=== PATIENT | male | born 1990 | race Two or more races ===

== ENCOUNTER 2017-05-01 19:24 | Emergency (ER) | payer SELFPAY ==
[2017-05-01] MEDS ORDERED: IV NORMAL SALINE 1,000ML 1,000 ML IV SCH (20:00)
[2017-05-01] MEDS ORDERED: 0.9 % SODIUM CHLORIDE 10 ML DISP.SYRIN. IV PRN (20:00)
[2017-05-01] MEDS ORDERED: NALOXONE 0.4 MG/ML VIAL. IV ONE (20:00)
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
[2017-05-01 20:24] LABS: BASO # 0.1 x10^3/uL (0.0-0.2); BASO % 1 % (0-3); EOS # 0.2 x10^3/uL (0.0-0.7); EOS % 2 % (0-3); HEMATOCRIT 39.8 % (39.0-53.0); HEMOGLOBIN 13.7 g/dL (13.0-17.5); LYMPH # 3.9 x10^3/uL (1.0-4.8); LYMPH % 48 % (24-48); MEAN CORPUSCULAR HEMOGLOBIN 30 pg (25-35); MEAN CORPUSCULAR HGB CONC 35 g/dL (31-37); MEAN CORPUSCULAR VOLUME 88 fL (79-100); MONO # 0.5 x10^3/uL (0.0-1.1); MONO % 6 % (0-9); NEUT # 3.5 x10^3uL (1.8-7.7); NEUT % 43 % (31-73); PLATELET COUNT 352 x10^3/uL (140-400); RED BLOOD COUNT 4.55 x10^6/uL (4.30-5.70); RED CELL DISTRIBUTION WIDTH 12.9 % (11.5-14.5); WHITE BLOOD COUNT 8.1 x10^3/uL (4.0-11.0)
[2017-05-01 20:42] LABS: ALBUMIN 3.8 g/dL (3.4-5.0); ALBUMIN/GLOBULIN RATIO 1.1 (1.0-1.7); CALCIUM 8.7 mg/dL (8.5-10.1); CREATININE 1.1 mg/dL (0.7-1.3); GFR 80.9; POTASSIUM 3.4 mmol/L (3.5-5.1); TOTAL BILIRUBIN 0.2 mg/dL (0.2-1.0); TOTAL PROTEIN 7.4 g/dL (6.4-8.2)
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
[2017-05-01 22:00] VITALS: BP 142/82
[2017-05-01] MEDS ORDERED: HYDROcodone/APAP 5/325MG 1 TAB TABLET PO ONE (22:00)
[2017-05-01] MEDS ORDERED: DIAZ5TAB PO (22:07)
[2017-05-01] MEDS ORDERED: NAPR500T PO (22:07)
[2017-05-01] MEDS ORDERED: HYDR-2758 PO (22:07)
[2017-05-01 22:54] LABS: BARBITURATES NEG (NEG); BENZODIAZEPINES POS (NEG); CANNABINOIDS NEG (NEG); COCAINE NEG (NEG); METHADONE NEG (NEG); OPIATES POS (NEG); PHENCYCLIDINE NEG (NEG)
[2017-05-01 22:55] LABS: AMPHETAMINE/METHAMPHETAMINE NEG (NEG)
[2017-05-01 23:02] LABS: BILIRUBIN,URINE NEG (NEG); CLARITY,URINE CLEAR; COLOR,URINE YELLOW; GLUCOSE,URINE NEG (NEG)
[2017-05-01 23:03] LABS: BACTERIA,URINE 0 /HPF (0-FEW); NITRITE,URINE NEG (NEG); RBC,URINE 0 /HPF (0-2); SQUAMOUS EPITHELIAL CELL,UR FEW /LPF; UROBILINOGEN,URINE 0.2 mg/dL (0.2 mg/dL); WBC,URINE OCC /HPF (0-4)
== END 2017-05-01 22:34 | disposition home or self-care (01) ==
LOC: ER 19:24
DX: S06.0X0A Concussion without loss of consciousness, initial encounter (principal); S39.92XA Unspecified injury of lower back, initial encounter; V49.49XA Driver injured in collision with other motor vehicles in traffic accident, initial encounter; W22.10XA Striking against or struck by unspecified automobile airbag, initial encounter; Y93.89 Activity, other specified; Y99.8 Other external cause status; Y92.410 Unspecified street and highway as the place of occurrence of the external cause
CPT/HCPCS: 36415; 70450; 72125; 80053; 80307; 81001; 85025; 85610; 85730; 96361; 96374; 99285; G0480; J2310; G0479; J7030

== ENCOUNTER 2020-08-27 13:34 | Emergency (ER) | payer SELFPAY ==
[~2020-08-27] VITALS: Ht 172.7 cm; Wt 133.0 kg
[2020-08-27 13:34] VITALS: BP 167/107
[~2020-08-27 13:34] MED LIST: DIAZ5TAB PO; HYDR-2155 PO; NAPR-683 PO
--- NOTE | 2020-08-27 13:47 | PHYS DOC ---
Past History Past Medical History: No Pertinent History Past Surgical History: No Surgical History Alcohol Use: None Drug Use: None General Adult HPI: HPI: 29-year-old male past medical history of obesity and hypertension, noncompliant with medications, presents the ED with complaints of left lower extremity swelling that has been present for the past week located in his left calf. States around 8 AM he had gradual onset sternal, nonradiating sharp chest pain that is been progressively getting worse. Reports no associated hemoptysis, difficulties breathing/dyspnea, nausea, vomiting, sore throat, cough, lightheadedness, dizziness, near-syncope, syncope, back pain or neurologic deficits. Smokes tobacco, denies any cocaine or methamphetamine abuse. No known history of Covid. Is not employed. Has no routine primary care physician. Father with history of CAD. No family history of cardiac arrhythmias, sudden under the age of 50, hypercoagulable state, AAD/AAA, ICH or connective tissue disorder including Marfan's or Nicolle-Danlos. Denies any recent surgery, trauma, hospitalizations, long car rides or long airplane trips. No prior history of DVT or PE. Reports this ED started him on a blood pressure medicine that was also the water pill-thinks it was HCTZ. Review of Systems: Review of Systems: Constitutional: Denies fever or chills Eyes: Denies change in visual acuity HENT: Denies nasal congestion or sore throat Respiratory: Denies cough or shortness of breath Cardiovascular: Denies syncope or hemoptysis GI: Denies abdominal pain, nausea, vomiting, bloody stools or diarrhea : Denies dysuria or hematuria Musculoskeletal: Denies back pain or joint deformity Integument: Denies rash or diaphoresis Neurologic: Denies headache, focal weakness or sensory changes Endocrine: Denies polyuria or polydipsia Lymphatic: Denies swollen glands Psychiatric: Denies depression or anxiety Allergies: Allergies: Allergies Coded Allergies Type Severity Reaction Last Updated Verified No Known Drug Allergies 05/01/17 No Physical Exam: PE: Constitutional: Well developed, well nourished, no acute distress, non-toxic appearance, hypertensive, obese habitus HENT: Normocephalic, atraumatic, Eyes: EOMI, conjunctiva normal, no discharge. Neck: Normal range of motion, supple, Cardiovascular: S1/2 present, regular rhythm Lungs & Thorax: Speaking in full sentences, bilateral equal chest rise, no tachypnea or increased work of breathing Abdomen: soft, no tenderness, Skin: Warm, dry, no erythema, no rash. [] Back: No tenderness, no CVA tenderness. [] Extremities: No tenderness, no cyanosis, left calf appears slightly larger than right Neurologic: Alert and oriented X 3, normal motor function, normal sensory fu nction, no focal deficits noted. [] Psychologic: Affect normal, judgement normal, mood normal. [] EKG: EKG: Sinus rhythm 83 bpm, no axis deviation, normal intervals, no T wave inversions, no ST elevations or ST depressions Radiology/Procedures: Radiology/Procedures: IMAGING REPORT Signed PATIENT: HIWOT OWENUNT: [id number] : 1990 LOCATION: ER AGE: 29 SEX: M EXAM STATUS: REG ER ORD. PHYSICIAN: ABEBA COOK DO REASON: CHEST PAIN PROCEDURE: PORTABLE CHEST 1V Study: XR CHEST 1V Indication: Chest pain. Comparison: None. Findings: The cardiomediastinal silhouette is within normal limits for size given AP technique and low lung volumes. No confluent airspace infiltrate, layering effusion or pneumothorax. Impression: No acute radiographic abnormality of the chest. Electronically signed by: CARMELO MORRIS MD (08/27/2020 2:04 PM) [id number] DICTATED AND SIGNED BY: CARMELO MORRIS MD DATE: 08/27/20 1403 CC: ABEBA COOK DO; SHANELLE GEORGES MD ~MTH0 0 IMAGING REPORT Signed PATIENT: HIWOT OWEN TACCOUNT: [id number] : 1990 LOCATION: ER AGE: 29 SEX: M EXAM STATUS: REG ER ORD. PHYSICIAN: ABEBA COOK DO REASON: lle swelling PROCEDURE: VENOUS LOWER EXTREMITY LEFT Examination: LEFT LOWER EXTREMITY - UNILATERAL VENOUS DOPPLER Technique: Ultrasound evaluation of the left lower extremity was performed from the groin to the upper calf with rios scale, spectral and color doppler evaluation. Indication: Leg swelling Comparison: None Findings: There is normal venous flow and compressibility of left common femoral vein, femoral vein, popliteal vein, and visualized proximal calf veins. Impression: No evidence for deep vein thrombosis of left lower extremity from the level of the calf veins to the groins. Electronically signed by: Darius Castellanos MD (08/27/2020 3:18 PM) [facility] DICTATED AND SIGNED BY: DARIUS CASTELLANOS MD DATE: 08/27/20 1518 CC: ABEBA COOK DO; SHANELLE GEORGES MD ~MTH0 0 IMAGING REPORT Signed PATIENT: HIWOT OWEN TACCOUNT: [id number] : 1990 LOCATION: ER AGE: 29 SEX: M EXAM STATUS: REG ER ORD. PHYSICIAN: ABEBA COOK DO REASON: sob, cp, leg swelling, r/o pe PROCEDURE: CT ANGIOGRAPHY CHEST EXAMINATION: CTA CHEST CLINICAL HISTORY: Chest pain, shortness of breath, and lower extremity edema concerning for PE Technique: Spiral CT acquisition of the chest from the thoracic inlet to the upper abdomen following IV contrast with coronal and sagittal reformatted images also provided for review. 3D maximum intensity projection images also performed. CT Dose Reduction Employed: One or more of the following individualized dose reduction techniques were utilized for this examination: 1. Automated exposure control 2. Adjustment of the mA and/or kV according to patient size 3. Use of iterative reconstruction technique. Comparison: Chest radiograph same day FINDINGS: Suboptimal opacification of the pulmonary arterial system: Prominent respiratory motion artifact limits evaluation. Pulmonary Vasculature: No evidence of main, lobar, or definite segmental pulmonary arterial thrombus. Mildly dilated main pulmonary artery measuring up to 3.5 cm in diameter. Lung Parenchyma, Pleura, and Airways: No focal consolidation. No suspicious pulmonary nodule. No pleural effusion. Central airways patent. Lower Neck, Lymph Nodes, and Mediastinum: Visualized thyroid gland within normal limits. No mediastinal, hilar, or axillary lymphadenopathy. Heart, Pericardium, and Thoracic Vessels: Cardiac chambers normal in size. No pericardial effusion. Thoracic aorta within normal limits. Bones and Soft Tissues: No evidence of acute osseous abnormality. Upper Abdomen: Partially visualized upper abdomen unremarkable. IMPRESSION: No evidence of pulmonary embolism or acute cardiopulmonary abnormality on somewhat limited evaluation as described.. Electronically signed by: Travis Up DO (08/27/2020 4:06 PM) [id number] DICTATED AND SIGNED BY: TRAVIS UP DO DATE: 08/27/20 1550 CC: ABEBA COOK DO; SHANELLE GEORGES MD ~MTH0 0 Heart Score: C/O Chest Pain: Yes HEART Score for Chest Pain: HEART Score for Chest Pain Response (Comments) Value History Slighlty/Non-Suspicious 0 ECG Normal 0 Age < 45 0 Risk Factors >3 Risk Factors or Hx CAD 2 Troponin < Normal Limit 0 Total 2 Risk Factors: Risk Factors: DM, Current or recent (<one month) smoker, HTN, HLP, family history of CAD, obesity. Risk Scores: Score 0 - 3: 2.5% MACE over next 6 weeks - Discharge Home Score 4 - 6: 20.3% MACE over next 6 weeks - Admit for Clinical Observation Score 7 - 10: 72.7% MACE over next 6 weeks - Early Invasive Strategies Course & Med Decision Making: Course & Med Decision Making Pertinent Labs and Imaging studies reviewed. (See chart for details) Concern for left lower extremity swelling over the course of the past week with sternal, gradual onset worsening chest pain that has been present for more than 6 hours. EKG with no ischemia. Troponin negative. D-dimer elevated. Lower extremity duplex with no left DVT. Chest xray w/no filtrates. CTA of the chest is pending to evaluate for pulmonary embolus. 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 Pt is aware he has not been medically cleared. Pt is requested some for his leg pain-will rx muscle relaxers in addition [id number] analgesia, was educated do not drink or drive with these medications. I called pt back on and informed patient of unremarkable CT of the chest results, that his dc instructions he received hasn't changed. I answered all his questions and pt was appreciative of his care. The patient has decided to leave our facility against medical advice. I have assessed patient's ability to make informed decision and feel the patient has the capacity to comprehend information regarding the current medical condition and appreciates the impact of the disease or condition and the consequences of various options for treatment, including foregoing treatment. The patient possesses the ability to evaluate all treatment options, comparing the risks and benefits of each option, communicate his or her choice in a consistent manner over time, and is able to make rational choices. I explained to the patient further testing, treatment, and evaluation I would like to perform in the emergency department visit as well as any possible alternatives that can be accomplished in a timely manner. I have outlined the possible risks of foregoing any or all of these interventions and the patient understands and acknowledges that the decision to leave may result in undesirable consequences such as , permanent disability, and/or loss of current lifestyle. Even though leaving AMA is not ideal, I have instructed the patient to follow any discharge instructions given, take any medications prescribed, and resume care as soon as possible with another provider. This conversation was witnessed by another member of the emergency department staff and we clearly communicated the patient is welcome to return anytime to continue care at our facility. Will discharge home with strict ED return precautions were given for worsening chest or back pain, neurologic deficits, difficulties breathing, or increased work of breathing. Encouraged urgent outpatient follow-up with PMD for blood pressure recheck, may need repeat DVT ultrasound, and outpatient nonemergent cardiology evaluation. Life-threatening processes were considered but are low suspicion at this time, given history, physical exam and ED workup. Pt was educated on all prescription medications and adverse effects. All patient's questions were answered and pt was stable at time of discharge. Life/limb-threatening differential includes but is not limited to, acute myocardial infarction, aortic dissection, congestive heart failure, esophageal injury including rupture, surgical abdomen, arrhythmia, cardiomyopathy, myocarditis, pericarditis, peptic ulcer disease, pneumomediastinum, pneumonia, pneumothorax, pulmonary embolus, unstable angina, rib fracture, contusion, pericardial tamponade or effusion, traumatic injury including mediastinal hemorrhage or hematoma, or pulmonary contusion. I spoken with the patient and her caregivers. I explained the patient's condition, diagnoses and treatment plan based on the information available to me at this time. I have answered the patient and her caregiver's questions and addressed any concerns. The patient and her caregivers have a good understandi ng of patient's diagnosis, condition and treatment plan as can be expected at this point. Vital signs have been stable. Patient's condition is stable and appropriate for discharge from the emergency department. Patient will pursue further outpatient evaluation with primary care physician or other designated or consulting physician as outlined in the discharge instructions. The patient and/or caregivers are agreeable to this plan of care and follow-up instructions have been explained in detail. The patient and/or caregivers have received these instructions in written form and have expressed an understanding of the discharge instructions. The patient and/or caregivers are aware that any significant change of condition or worsening of symptoms should prompt immediate return to this or the closest emergency department or call to 911. Soledad Disclaimer: Soledad Disclaimer: This electronic medical record was generated, in whole or in part, using a voice recognition dictation system. Departure Departure: Impression: Primary Impression: Elevated liver function tests Additional Impressions: Swelling of left lower extremity Chest pain at rest Uncontrolled hypertension Disposition: 07 AMA/ELOPED/LWBS Condition: STABLE Referrals: SHANELLE GEORGES MD (PCP) For reevaluation in 1 week for blood pressure check. May benefit from repeat ultrasound if leg swelling persists in the next 2 weeks. Patient Instructions: Chest Pain (Nonspecific), Hypertension, Peripheral Edema Additional Instructions: FOLLOW UP WITH CARDIOLOGY: For nonemergent chest pain evaluation [facility] [id number] [facility] [address] [address] EMERGENCY DEPARTMENT GENERAL DISCHARGE INSTRUCTIONS Thank you for coming to [facility] (ED) today and trusting us with you care. We trust that you had a positivie experience in our Emergency Department. If you wish to speak to the department management, you may call the director at [phone]. YOUR FOLLOW UP INSTRUCTIONS ARE FOLLOWS: 1. Do you have a private Doctor? If you do not have a private doctor, please ask for a resource list of physicians or clinics that may be able to assist you with follow up care. 2. The Emergency Physician has interpreted your x-rays. The X-Ray specialist will also review them. If there is a change in the findings, you will be notified in 48 hours when at all possible. 3. A lab test or culture has been done, your results will be reviewed and you will be notified if you need a change in treatment. ADDITIONAL INSTRUCTIONS AND INFORMATION: 1. Your care today has been supervised by a physician who is specially trained in emergency care. Many problems require more than one evaluation for a complete diagnosis and treatment. We recommend that you schedule your follow up appointment as recommended to ensure complete treatment of you illness or injury. If you are unable to obtain follow up care and continue to have a problem, or if your condition worsens, we recommend that you return to the ED. 2. We are not able to safely determine your condition over the phone nor are we able to give sound medical advice over the phone. For these safety reasons, if you call for medical advice we will ask you to come to the ED for further evaluation. 3. If you have any questions regarding these discharge instructions please call the ED at [phone]. SAFETY INFORMATION: In the interest of safety, wellness, and injury prevention; we encourage you to wear your sealbelt, if you smoke; quite smoking, and we encourage family to use a protective helmet for bicycling and other sporting events that present an increased risk for head injury. IF YOUR SYMPTOMS WORSEN OR NEW SYMPTOMS DEVELOP, OR YOU HAVE CONCERNS ABOUT YOUR CONDITION; OR IF YOUR CONDITION WORSENS WHILE YOU ARE WAITING FOR YOUR FOLLOW UP APPOINTMENT; EITHER CONTACT YOUR PRIMARY CARE DOCTOR, THE PHYSICIAN WHOSE NAME AND NUMBER YOU WERE GIVEN, OR RETURN TO THE ED IMMEDIATELY. Scripts Cyclobenzaprine Hcl (CYCLOBENZAPRINE HCL) 5 Mg Tablet 1 TAB PO TID for pain, #20 TAB Prov: ABEBA COOK DO 08/27/20 ABEBA COOK DO Aug 27, 2020 13:47
--- NOTE | 2020-08-27 13:55 | EKG ---
[facility] ED [facility] [address] [place] [id number] Test Date: 2020-08-27 Test Time: 13:40:29 Pat Name: HIWOT OWEN Department: Room: Gender: M Bottle Gauger: : 1990 Requested By: ABEBA COOK Order Number: [id number] Reading MD: Measurements Intervals [place] Rate: 83 P: 38 FL: 192 QRS: 41 QRSD: 86 T: 22 QT: 354 QTc: 416 Interpretive Statements SINUS RHYTHM NO SPECIFIC ECG ABNORMALITIES RI6.02 No previous ECG available for comparison
--- NOTE | 2020-08-27 14:06 | RAD ---
Study: XR CHEST 1V Indication: Chest pain. Comparison: None. Findings: The cardiomediastinal silhouette is within normal limits for size given AP technique and low lung vol umes. No confluent airspace infiltrate, layering effusion or pneumothorax. Impression: No acute radiographic abnormality of the chest. Electronically signed by: CARMELO MORRIS MD (08/27/2020 2:04 PM) [id number]
[2020-08-27 14:10] LABS: BASO # 0.1 x10^3/uL (0.0-0.2); BASO % 1 % (0-3); EOS # 0.3 x10^3/uL (0.0-0.7); EOS % 3 % (0-3); HEMATOCRIT 39.4 % (39.0-53.0); HEMOGLOBIN 13.3 g/dL (13.0-17.5); LYMPH # 2.7 x10^3/uL (1.0-4.8); LYMPH % 25 % (24-48); MEAN CORPUSCULAR HEMOGLOBIN 30 pg (25-35); MEAN CORPUSCULAR HGB CONC 34 g/dL (31-37); MEAN CORPUSCULAR VOLUME 89 fL (79-100); MONO # 0.7 x10^3/uL (0.0-1.1); MONO % 7 % (0-9); NEUT # 6.9 x10^3uL (1.8-7.7); NEUT % 64 % (31-73); PLATELET COUNT 349 x10^3/uL (140-400); RED BLOOD COUNT 4.45 x10^6/uL (4.30-5.70); RED CELL DISTRIBUTION WIDTH 12.9 % (11.5-14.5); WHITE BLOOD COUNT 10.8 x10^3/uL (4.0-11.0)
[2020-08-27 14:17] LABS: CALCIUM 8.7 mg/dL (8.5-10.1); CREATININE 0.8 mg/dL (0.7-1.3); GFR 114.3; POTASSIUM 3.4 mmol/L (3.5-5.1)
[2020-08-27 14:24] LABS: ALBUMIN 3.4 g/dL (3.4-5.0); ALBUMIN/GLOBULIN RATIO 0.9 (1.0-1.7); MAGNESIUM 1.9 mg/dL (1.8-2.4); TOTAL BILIRUBIN 0.2 mg/dL (0.2-1.0); TOTAL PROTEIN 7.2 g/dL (6.4-8.2)
[2020-08-27] MEDS ORDERED: IOHEXOL 350 MG/ML 100 ML VIAL. IV ONE (15:15)
[2020-08-27] MEDS ORDERED: HYDROmorphone PF 1 MG/ML DISP.SYRIN IVP ONE (15:15)
--- NOTE | 2020-08-27 15:20 | RAD ---
Examination: LEFT LOWER EXTREMITY - UNILATERAL VENOUS DOPPLER Technique: Ultrasound evaluation of the left lower extremity was performed from the groin to the uppe r calf with rios scale, spectral and color doppler evaluation. Indication: Leg swelling Comparison: None Findings: There is normal venous flow and compressibility of left common femoral vein, femoral vein, popliteal vein, and visualized proximal calf veins. Impression: No evidence for deep vein thrombosis of left lower extremity from the level of the calf v eins to the groins. Electronically signed by: Darius Mata MD (08/27/2020 3:18 PM) MAVERICK
[2020-08-27] MEDS ORDERED: KETOROLAC 15 MG/ML VIAL. IVP ONE (15:45)
[2020-08-27] MEDS ORDERED: CYCL5TAB PO (15:51)
--- NOTE | 2020-08-27 16:09 | RAD ---
EXAMINATION: CTA CHEST CLINICAL HISTORY: Chest pain, shortness of breath, and lower extremity edema concerning for PE Technique: Spiral CT acquisition of the chest from the thoracic inlet to the upper abdomen following IV contrast with coronal and sagittal reformatted images also provided for review. 3D maximum intensi ty projection images also performed. CT Dose Reduction Employed: One or more of the following individualized dose reduction techniques wer e utilized for this examination: 1. Automated exposure control 2. Adjustment of the mA and/or kV ac cording to patient size 3. Use of iterative reconstruction technique. Comparison: Chest radiograph same day FINDINGS: Suboptimal opacification of the pulmonary arterial system: Prominent respiratory motion artifact limi ts evaluation. Pulmonary Vasculature: No evidence of main, lobar, or definite segmental pulmonary arterial thrombus. Mildly dilated main pulmonary artery measuring up to 3.5 cm in diameter. Lung Parenchyma, Pleura, and Airways: No focal consolidation. No suspicious pulmonary nodule. No pleu ral effusion. Central airways patent. Lower Neck, Lymph Nodes, and Mediastinum: Visualized thyroid gland within normal limits. No mediastin al, hilar, or axillary lymphadenopathy. Heart, Pericardium, and Thoracic Vessels: Cardiac chambers normal in size. No pericardial effusion. T horacic aorta within normal limits. Bones and Soft Tissues: No evidence of acute osseous abnormality. Upper Abdomen: Partially visualized upper abdomen unremarkable. IMPRESSION: No evidence of pulmonary embolism or acute cardiopulmonary abnormality on somewhat limited evaluation as described.. Electronically signed by: Travis Gamble DO (08/27/2020 4:06 PM) [id number]
== END 2020-08-27 15:45 | disposition left against medical advice (07) ==
LOC: ER 13:34
DX: R79.89 Other specified abnormal findings of blood chemistry (principal); R22.42 Localized swelling, mass and lump, left lower limb; R07.89 Other chest pain; I10 Essential (primary) hypertension; E66.9 Obesity, unspecified; Z68.41 Body mass index [BMI] 40.0-44.9, adult; Z91.14 Patient's other noncompliance with medication regimen
CPT/HCPCS: 36415; 71045; 71275; 80053; 83690; 83735; 84484; 85025; 85379; 93005; 93971; 96374; 99285; J1885; Q9967

== ENCOUNTER 2020-09-05 20:27 | Emergency (ER) | payer SELFPAY ==
[~2020-09-05] VITALS: Ht 172.7 cm; Wt 133.0 kg
[2020-09-05 20:27] VITALS: BP 176/116
[~2020-09-05 20:27] MED LIST changes: +CYCL5TAB PO
[2020-09-05] MEDS ORDERED: ACETAMINOPHEN 500 MG TABLET PO ONE (20:45)
--- NOTE | 2020-09-05 20:45 | PHYS DOC ---
Past History Past Medical History: No Pertinent History Past Surgical History: No Surgical History Alcohol Use: None Drug Use: None Adult General Chief Complaint Chief Complaint: LOWER EXTREMITY SWELLING HPI HPI Patient is a 30-year-old male who presents with left lower extremity swelling. States it started approximately 2 weeks ago and he came into the emergency department for this. States he was evaluated for DVT with ultrasound and it came up negative. States he was told by the ED staff and his doctor that if it did not get better to come back to the emergency department for repeat ultrasound. Patient states that his left lower extremity has significant swelling that has not gone down since his last visit. Denies any recent travel, illnesses, surgeries, traumas, fevers, chest pain, shortness of breath, abdominal pain, nausea, vomiting. States he is otherwise eating and drinking normally. States he is making urine and stool normally for him. Denies any alcohol or drug use. Review of Systems Review of Systems Review of systems otherwise unremarkable except noted in HPI Allergies Allergies Allergies Coded Allergies Type Severity Reaction Last Updated Verified No Known Drug Allergies 05/01/17 No Physical Exam Physical Exam Constitutional: Well developed, well nourished, no acute distress, non-toxic appearance. [] HENT: Normocephalic, atraumatic, bilateral external ears normal, oropharynx moist, no oral exudates, nose normal. [] Eyes: conjunctiva normal, no discharge. [] Neck: Normal range of motion, no tenderness, supple, no stridor. [] Cardiovascular:Heart rate regular rhythm, no murmur [] Lungs & Thorax: Bilateral breath sounds clear to auscultation [] Abdomen: soft, no tenderness, Skin: Warm, dry, no erythema, no rash. [] Back: No tenderness, no CVA tenderness. [] Extremities: Left lower extremity swelling, and tenderness with no obvious deformities or bruising Neurologic: Alert and oriented X 3, normal motor function, normal sensory function, no focal deficits noted. [] Psychologic: Affect normal, judgement normal, mood normal. [] EKG EKG [] Radiology/Procedures Radiology/Procedures [] Heart Score C/O Chest Pain: No Risk Factors: Risk Factors: DM, Current or recent (<one month) smoker, HTN, HLP, family history of CAD, obesity. Risk Scores: Risk Factors: DM, Current or recent (<one month) smoker, HTN, HLP, family history of CAD, obesity. Course & Med Decision Making Course & Med Decision Making Patient is a 30-year-old male presents with left lower extremity swelling Laboratory gnosis not concerning. Physical exam noted above. Patient stated that he needed to leave the emergency department in 1 hour and did not have time to wait for laboratory analysis, or ultrasound and signed out AMA. [] Dragon Disclaimer Dragon Disclaimer This electronic medical record was generated, in whole or in part, using a voice recognition dictation system. Departure Departure: Impression: Primary Impression: Leg swelling Disposition: 07 AMA/ELOPED/LWBS Condition: STABLE Referrals: SHANELLE GEORGES MD (PCP) JONAH GARY MD Sep 05, 2020 20:45
== END 2020-09-05 20:50 | disposition left against medical advice (07) ==
LOC: ER 20:27
DX: R22.42 Localized swelling, mass and lump, left lower limb (principal)
CPT/HCPCS: 99281; 99283